=== PATIENT | female | born 1975 | race Two or more races ===

== ENCOUNTER 2016-05-16 18:40 | Emergency (ER) | payer MEDICAID ==
[~2016-05-16] VITALS: Ht 170.2 cm; Wt 74.8 kg
[2016-05-16 19:18] LABS: BASOPHILS # (AUTO) 0.1 /CMM (0.0-0.2); BASOPHILS % (AUTO) 0.7 % (0.0-2.0); DIFF TOTAL % 100 %; EOSINOPHILS # (AUTO) 0.2 /CMM (0.0-0.7); EOSINOPHILS % (AUTO) 1.9 % (0.0-6.0); HEMATOCRIT 38 % (33-45); HEMOGLOBIN 12.7 g/dL (11.5-14.8); LYMPHOCYTES # (AUTO) 3.3 /CMM (0.8-4.8); LYMPHOCYTES % (AUTO) 38.1 % (20.0-44.0); MEAN CORPUSCULAR HEMOGLOBIN 27 PG (26.0-33.0); MEAN CORPUSCULAR HGB CONC 33 g/dl (31.0-36.0); MEAN CORPUSCULAR VOLUME 82 fL (82-100); MONOCYTES # (AUTO) 0.5 /CMM (0.1-1.30); MONOCYTES % (AUTO) 6.3 % (2.0-12.0); NEUTROPHILS # (AUTO) 4.5 /CMM (1.8-8.9); PLATELET COUNT (AUTO) 270 /CMM (150-450); RED BLOOD CELL COUNT(AUTO) 4.65 MIL/uL (4.0-5.2); WHITE BLOOD COUNT (AUTO) 8.6 K/uL (4.3-11.0)
[2016-05-16 19:26] LABS: CALCIUM, SERUM 8.7 mg/dL (8.5-10.1); CREATININE 0.7 mg/dL (0.6-1.3); POTASSIUM 3.4 mmol/L (3.5-5.1)
[2016-05-16 21:49] VITALS: BP 144/98
== END 2016-05-16 21:50 | disposition home or self-care (01) ==
LOC: ER 18:42
DX: E03.9 Hypothyroidism, unspecified (principal); R51 Headache; M79.89 Other specified soft tissue disorders
CPT/HCPCS: 36415; 70450; 71010; 80048; 84443; 84703; 85025; 93005; 99285; A4606; Z7610

== ENCOUNTER 2016-08-04 20:43 | Emergency (ER) | payer BC, MEDICAID ==
[~2016-08-04] VITALS: Ht 175.3 cm; Wt 77.1 kg
[2016-08-04 21:39] LABS: BASOPHILS % (AUTO) 0.3 % (0.0-2.0); EOSINOPHILS # (AUTO) 0.3 /CMM (0.0-0.7); EOSINOPHILS % (AUTO) 3.7 % (0.0-6.0); HEMATOCRIT 34 % (33-45); HEMOGLOBIN 11.7 g/dL (11.5-14.8); LYMPHOCYTES # (AUTO) 4.2 /CMM (0.8-4.8); LYMPHOCYTES % (AUTO) 44.6 % (20.0-44.0); MEAN CORPUSCULAR HEMOGLOBIN 29 PG (26.0-33.0); MEAN CORPUSCULAR HGB CONC 35 g/dl (31.0-36.0); MEAN CORPUSCULAR VOLUME 85 fL (82-100); MONOCYTES # (AUTO) 0.8 /CMM (0.1-1.30); MONOCYTES % (AUTO) 8.2 % (2.0-12.0); NEUTROPHILS # (AUTO) 4.1 /CMM (1.8-8.9); NEUTROPHILS % (AUTO) 43.2 % (43.0-81.0); PLATELET COUNT (AUTO) 264 /CMM (150-450); RDW COEFFICIENT OF VARIATION 11.7 (11.5-15.0); RED BLOOD CELL COUNT(AUTO) 3.99 MIL/uL (4.0-5.2); WHITE BLOOD COUNT (AUTO) 9.4 K/uL (4.3-11.0)
[2016-08-04 21:59] LABS: ALBUMIN 3.1 g/dL (3.4-5.0); BILIRUBIN,TOTAL 0.3 mg/dL (0.2-1.0); CALCIUM, SERUM 8.2 mg/dL (8.5-10.1); CREATININE 0.8 mg/dL (0.6-1.3); POTASSIUM 3.4 mmol/L (3.5-5.1); TOTAL PROTEIN, SERUM 6.5 g/dL (6.4-8.2)
[2016-08-04 22:06] LABS: THYROID STIMULATING HORMONE 4.573 uIU/mL (0.358-3.74)
[2016-08-04 22:50] VITALS: BP 131/85
== END 2016-08-04 22:51 | disposition home or self-care (01) ==
LOC: ER 20:44
DX: F41.9 Anxiety disorder, unspecified (principal)
CPT/HCPCS: 36415; 80053-TC; 84443-TC; 85025-TC; A4606; Z7610

== ENCOUNTER 2016-09-29 18:11 | Emergency (ER) | payer BC, MEDICAID ==
[~2016-09-29] VITALS: Ht 175.3 cm; Wt 77.1 kg
--- NOTE | 2016-09-29 18:23 | NUR ---
PRESENTS SELF TO ED DUE TO ABDOMINAL PAIN, 9/10,ACHING, NON RADIATING. PATIENT IS AAO4, APPEARS IN NO APPARENT DISTRESS, RESPIRATION EVEN AND UNLABORED. PATIENT DENIES N/V/D. SKIN IS WARM TO TOUCH AND NON DIAPHORETIC. PATIENT AFEBRILE. VSS.
[2016-09-29] MEDS ORDERED: KETOROLAC TROMETHAMINE 15 MG/ML VIAL ONE (18:41)
[2016-09-29] MEDS ORDERED: ONDANSETRON HCL/PF 4 MG/2 ML VIAL ONE (18:41)
[2016-09-29] MEDS ORDERED: IV SET PRIMARY 1 EA INFUS.SET MC ONE (18:41)
[2016-09-29] MEDS ORDERED: IV NS 0.9% 1,000 ML ONE (18:41)
[2016-09-29 18:43] LABS: APPEARANCE,URINE Clear (CLEAR); BILIRUBIN,URINE Negative (NEGATIVE); BLOOD, URINE Trace-intact Ery/uL (NEGATIVE); COLOR,URINE Yellow (YELLOW); KETONES,URINE Negative (NEGATIVE); LEUKOCYTE ESTERASE ,URINE Small (NEGATIVE); NITRITE, URINE Negative (NEGATIVE); PROTEIN,URINE Negative (NEGATIVE); UGLUCOSE Negative (NEGATIVE); UROBILINOGEN,URINE 0.2 EU/dL (0.2)
[2016-09-29 18:44] LABS: PREGNANCY TEST URINE QUAL NEGATIVE (NEGATIVE)
[2016-09-29 18:44] LABS: BASOPHILS % (AUTO) 0.2 % (0.0-2.0); EOSINOPHILS # (AUTO) 0.3 /CMM (0.0-0.7); EOSINOPHILS % (AUTO) 3.2 % (0.0-6.0); HEMATOCRIT 34 % (33-45); HEMOGLOBIN 11.9 g/dL (11.5-14.8); LYMPHOCYTES # (AUTO) 3.8 /CMM (0.8-4.8); LYMPHOCYTES % (AUTO) 45.1 % (20.0-44.0); MEAN CORPUSCULAR HEMOGLOBIN 29 PG (26.0-33.0); MEAN CORPUSCULAR HGB CONC 35 g/dl (31.0-36.0); MEAN CORPUSCULAR VOLUME 84 fL (82-100); MONOCYTES # (AUTO) 0.8 /CMM (0.1-1.30); MONOCYTES % (AUTO) 8.9 % (2.0-12.0); NEUTROPHILS # (AUTO) 3.6 /CMM (1.8-8.9); NEUTROPHILS % (AUTO) 42.6 % (43.0-81.0); PLATELET COUNT (AUTO) 274 /CMM (150-450); RDW COEFFICIENT OF VARIATION 11.5 (11.5-15.0); RED BLOOD CELL COUNT(AUTO) 4.06 MIL/uL (4.0-5.2); WHITE BLOOD COUNT (AUTO) 8.5 K/uL (4.3-11.0)
[2016-09-29] MEDS: IV NS 0.9% 1,000 ML BAG IV ONE (18:47)
[2016-09-29] MEDS: ONDANSETRON HCL/PF 4 MG/2 ML VIAL IVP ONE (18:48)
[2016-09-29] MEDS: KETOROLAC TROMETHAMINE INJ 30 MG/ML VIAL IV ONE (18:49)
--- NOTE | 2016-09-29 18:57 | NUR ---
MEDICATED PT ORDERED
[2016-09-29 19:00] LABS: ALBUMIN 3.2 g/dL (3.4-5.0); BILIRUBIN,TOTAL 0.2 mg/dL (0.2-1.0); CALCIUM, SERUM 8.4 mg/dL (8.5-10.1); CREATININE 0.7 mg/dL (0.6-1.3); POTASSIUM 3.6 mmol/L (3.5-5.1); TOTAL PROTEIN, SERUM 7.1 g/dL (6.4-8.2)
--- NOTE | 2016-09-29 19:12 | NUR ---
ABDOMINAL LETITIA ON PROGESS
--- NOTE | 2016-09-29 19:29 | NUR ---
report given to Ed nurse
[2016-09-29 19:34] LABS: BACTERIA,URINE Few /HPF (None Seen); RBC,URINE 0-2 /HPF (0-2); SQUAMOUS EPITHELIAL CELL,UR Moderate /HPF (None Seen)
--- NOTE | 2016-09-29 20:14 | NUR ---
pt back from [facility].
--- NOTE | 2016-09-29 21:42 | NUR ---
IV removed. Catheter intact and site benign. Pressure and 4x4 applied to site. No bleeding noted. Patient discharged to home in stable condition. Written and verbal after care instructions given. Patient verbalizes understanding of instruction. ambulatory with a steady gait noted.
[2016-09-29 21:43] VITALS: BP 132/73
== END 2016-09-29 21:43 | disposition home or self-care (01) ==
LOC: ER 18:13
DX: K59.00 Constipation, unspecified (principal)
CPT/HCPCS: 36415; 74176; 76856; 80048; 80076; 81001; 83690; 84703; 85025; 96361; 96374; 96375; 99285; A4606; J1885; J2405; J7030; Z7610; 81000-TC

== ENCOUNTER 2017-05-03 19:56 | Emergency (ER) | payer BC, MEDICAID ==
[~2017-05-03] VITALS: Ht 157.5 cm; Wt 59.0 kg
[2017-05-03 20:21] VITALS: BP 145/90
== END 2017-05-03 21:25 | disposition home or self-care (01) ==
LOC: ER 19:58
DX: J40 Bronchitis, not specified as acute or chronic (principal); J11.1 Influenza due to unidentified influenza virus with other respiratory manifestations; I10 Essential (primary) hypertension
CPT/HCPCS: 99283; A4606; Z7610

== ENCOUNTER 2021-04-15 20:13 | Emergency (ER) | payer MEDICAID ==
[~2021-04-15] VITALS: Ht 157.5 cm; Wt 63.5 kg
--- NOTE | 2021-04-15 20:20 | NUR ---
PATIENT BIBSELF C/O HIGH BP WITH KELLY/DIZZINESS.PATIENT IS A/O X 4, RR EVEN AND UNLABORED, NO SOB NOTED. PATIENT CONNECTED TO NEUROSURGICAL NURSE PRACTITIONER AND POX.
[2021-04-15] MEDS ORDERED: SUMATRIPTAN SUCCINATE 6 MG/0.5 ML VIAL SQ ONE ×2 (22:27→22:30)
[2021-04-15] MEDS ORDERED: METOCLOPRAMIDE HCL 10 MG/2 ML VIAL ONE (22:28)
[2021-04-15] MEDS ORDERED: METOCLOPRAMIDE HCL 10 MG/2 ML VIAL IV ONE (22:30)
[2021-04-15] MEDS ORDERED: IV NS 0.9% 500 ML BAG IV ONE (22:30)
--- NOTE | 2021-04-15 23:27 | NUR ---
Patient discharged to home in stable condition. Written and verbal after care instructions given. Patient verbalizes understanding of instruction.
[2021-04-15 23:33] VITALS: BP 138/89
== END 2021-04-15 23:33 | disposition home or self-care (01) ==
LOC: ER 20:27
DX: G43.909 Migraine, unspecified, not intractable, without status migrainosus (principal); F41.9 Anxiety disorder, unspecified
CPT/HCPCS: 70450; 96361; 96372; 96374; 99285; J2765; J3030; J7040

== ENCOUNTER 2023-05-08 15:32 | Emergency (ER) | payer OTHER ==
[~2023-05-08] VITALS: Ht 172.7 cm; Wt 75.7 kg
[2023-05-08 16:52] VITALS: BP 150/80; TEMP 98.5; O2SAT 100
== END 2023-05-08 16:53 | disposition home or self-care (01) ==
LOC: ER 15:32
DX: I10 Essential (primary) hypertension (principal); F41.9 Anxiety disorder, unspecified; Z90.89 Acquired absence of other organs